=== PATIENT | female | born 1975 | race Caucasian/White ===

== ENCOUNTER 2022-10-31 15:56 | Emergency (ER) | payer OTHER, SELFPAY ==
[2022-10-31 16:00] VITALS: BP 174/110; PULSE 97; RESP 16; TEMP 36.8; O2SAT 99; BMI 27.8
--- NOTE | 2022-10-31 16:16 | ED.GENADUL1 ---
Documented by User: BRITTANY Kirby 10/31/22 17:08 HPI - General Adult General Chief complaint: Recheck/Abnormal Lab/Rx Stated complaint: HYPERTENSION Time Seen by Provider: 10/31/22 16:01 Source: patient and family Mode of arrival: walk-in Limitations: no limitations History of Present Illness HPI narrative: Patient is a 47-year-old female who presents to the emergency department for the evaluation of elevated blood pressure noted at her neurologist office. She states she had a routine follow-up today with her significant other at the neurologist office and was noted to have elevated blood pressure she was referred to the emergency department. She takes losartan daily but takes it at nighttime and has not had it yet today. She denies headache, visual changes, peripheral paresthesias, chest pain, shortness of breath. She did not know that her blood pressure was elevated. She has no focal medical complaints at this time. Related Data Home Medications Medication Instructions Recorded Confirmed aripiprazole 2 mg tablet 2 mg PO DAILY 10/31/22 10/31/22 buspirone 10 mg tablet 10 mg PO DAILY 10/31/22 10/31/22 diclofenac sodium 3 % topical gel 1 applic topical DAILY 10/31/22 10/31/22 duloxetine 60 mg capsule,delayed 60 mg PO DAILY 10/31/22 10/31/22 release hydroxychloroquine 200 mg tablet 200 mg PO BID 10/31/22 10/31/22 hydroxyzine pamoate 50 mg capsule 50 mg PO DAILY 10/31/22 10/31/22 leflunomide 10 mg tablet 10 mg PO DAILY 10/31/22 10/31/22 leflunomide 20 mg tablet 20 mg PO DAILY 10/31/22 10/31/22 losartan 50 mg tablet 50 mg PO DAILY 10/31/22 10/31/22 nabumetone 750 mg tablet 750 mg PO DAILY 10/31/22 10/31/22 omeprazole 20 mg capsule,delayed 20 mg PO DAILY 10/31/22 10/31/22 release Allergies Allergy/AdvReac Type Severity Reaction Status Date / Time No Known Drug Allergies Allergy Verified 10/31/22 16:00 Review of Systems ROS Constitutional Denies: fever or chills Eyes Denies: change in vision Cardiovascular Denies: chest pain Respiratory Denies: shortness of breath Gastrointestinal Denies: vomiting Neurological Denies: headache PFSH PFSH Social History Smoking status: Former smoker Previous occupational history: Unemployed, lives at home with significant other Tobacco Smoking status: Former smoker Occupational History Previous occupational history: Unemployed, lives at home with significant other Exam Narrative Exam Narrative: Gen.: Awake, alert, in no distress Head: Normocephalic, atraumatic ENT: Moist mucous membranes Respiratory: No respiratory distress, lungs clear bilaterally Cardio: Regular rate and rhythm Gastrointestinal: Abdomen is soft, nondistended and nontender to palpation Extremities: Moves extremities equally, no injuries noted Psych: Normal mood and affect Neuro: No focal neuro deficit Skin: Warm, dry, intact Constitutional Vital Signs - 24 hr 10/31/22 16:00 10/31/22 16:28 10/31/22 17:05 Temperature 98.2 F Pulse Rate [Monitor] 97 H Respiratory Rate 16 Blood Pressure 162/107 H 162/97 H Blood Pressure [Right Arm] 174/110 H Pulse Oximetry 99 Course Vital Signs Vital signs: Vital Signs Temperature 98.2 F 10/31/22 16:00 Pulse Rate 97 H 10/31/22 16:00 Respiratory Rate 16 10/31/22 16:00 Blood Pressure 174/110 H 10/31/22 16:00 Pulse Oximetry 99 10/31/22 16:00 Temperature 98.2 F 10/31/22 16:00 Pulse Rate 97 H 10/31/22 16:00 Respiratory Rate 16 10/31/22 16:00 Blood Pressure 162/97 H 10/31/22 17:05 Pulse Oximetry 99 10/31/22 16:00 Medical Decision Making [facility] Narrative Medical decision making narrative: Patient with no focal medical complaints in the emergency department. She is treated with 5 mg of IV Lopressor and 1.25 mg of IV Vasotec. Blood pressure on recheck is 162/97. Patient is instructed to follow-up with her PCP for evaluation of medication adjustment with her losartan. Return to the Emergency Room if symptoms change or worsen. Medical Records Medical records reviewed: Yes I reviewed the patient's medical records Discharge Plan Discharge Chief Complaint: Recheck/Abnormal Lab/Rx Clinical Impression: Hypertension Patient Disposition: Home, Self-Care Time of Disposition Decision: 17:07 Condition: Good Prescriptions / Home Meds: No Action diclofenac sodium 3 % gel 1 applic TOPICAL DAILY hydroxyzine pamoate 50 mg capsule 50 mg PO DAILY leflunomide 10 mg tablet 10 mg PO DAILY buspirone 10 mg tablet 10 mg PO DAILY hydroxychloroquine 200 mg tablet 200 mg PO BID duloxetine 60 mg capsule,delayed release(DR/EC) 60 mg PO DAILY losartan 50 mg tablet 50 mg PO DAILY nabumetone 750 mg tablet 750 mg PO DAILY leflunomide 20 mg tablet 20 mg PO DAILY omeprazole 20 mg capsule,delayed release(DR/EC) 20 mg PO DAILY aripiprazole 2 mg tablet 2 mg PO DAILY Instructions: Hypertension (ED) Stand Alone Forms: Portal Instructions Referrals: RADHA GOULD MD [Primary Care Provider] - 1 week Documented by User: Krunal Velasquez 10/31/22 17:22 HPI - General Adult General Chief complaint: Recheck/Abnormal Lab/Rx Stated complaint: HYPERTENSION Time Seen by Provider: 10/31/22 16:01 Related Data Home Medications Medication Instructions Recorded Confirmed aripiprazole 2 mg tablet 2 mg PO DAILY 10/31/22 10/31/22 buspirone 10 mg tablet 10 mg PO DAILY 10/31/22 10/31/22 diclofenac sodium 3 % topical gel 1 applic topical DAILY 10/31/22 10/31/22 duloxetine 60 mg capsule,delayed 60 mg PO DAILY 10/31/22 10/31/22 release hydroxychloroquine 200 mg tablet 200 mg PO BID 10/31/22 10/31/22 hydroxyzine pamoate 50 mg capsule 50 mg PO DAILY 10/31/22 10/31/22 leflunomide 10 mg tablet 10 mg PO DAILY 10/31/22 10/31/22 leflunomide 20 mg tablet 20 mg PO DAILY 10/31/22 10/31/22 losartan 50 mg tablet 50 mg PO DAILY 10/31/22 10/31/22 nabumetone 750 mg tablet 750 mg PO DAILY 10/31/22 10/31/22 omeprazole 20 mg capsule,delayed 20 mg PO DAILY 10/31/22 10/31/22 release Allergies Allergy/AdvReac Type Severity Reaction Status Date / Time No Known Drug Allergies Allergy Verified 10/31/22 16:00 [facility] Social History Smoking status: Former smoker Previous occupational history: Unemployed, lives at home with significant other Exam Constitutional Vital Signs - 24 hr 10/31/22 16:00 10/31/22 16:28 10/31/22 17:05 Temperature 98.2 F Pulse Rate [Monitor] 97 H Respiratory Rate 16 Blood Pressure 162/107 H 162/97 H Blood Pressure [Right Arm] 174/110 H Pulse Oximetry 99 Course Vital Signs Vital signs: Vital Signs Temperature 98.2 F 10/31/22 16:00 Pulse Rate 97 H 10/31/22 16:00 Respiratory Rate 16 10/31/22 16:00 Blood Pressure 174/110 H 10/31/22 16:00 Pulse Oximetry 99 10/31/22 16:00 Temperature 98.2 F 10/31/22 16:00 Pulse Rate 97 H 10/31/22 16:00 Respiratory Rate 16 10/31/22 16:00 Blood Pressure 162/97 H 10/31/22 17:05 Pulse Oximetry 99 10/31/22 16:00 Medical Decision Making MDM Narrative Medical decision making narrative: Patient with no focal medical complaints in the emergency department. She is treated with 5 mg of IV Lopressor and 1.25 mg of IV Vasotec. Blood pressure on recheck is 162/97. Patient is instructed to follow-up with her PCP for evaluation of medication adjustment with her losartan. Return to the Emergency Room if symptoms change or worsen. For this patient encounter I reviewed the mid-level provider?s documentation, medical decision-making and treatment plan, and I personally spent time with this patient. Shared APC visit, physician attestation: [id number]: This visit was performed by both a physician and an APC. I personally evaluated and examined the patient. I performed all aspects of MDM as documented. Discharge Plan Discharge Chief Complaint: Recheck/Abnormal Lab/Rx Clinical Impression: Hypertension Patient Disposition: Home, Self-Care Time of Disposition Decision: 17:07 Condition: Good Prescriptions / Home Meds: No Action diclofenac sodium 3 % gel 1 applic TOPICAL DAILY hydroxyzine pamoate 50 mg capsule 50 mg PO DAILY leflunomide 10 mg tablet 10 mg PO DAILY buspirone 10 mg tablet 10 mg PO DAILY hydroxychloroquine 200 mg tablet 200 mg PO BID duloxetine 60 mg capsule,delayed release(DR/EC) 60 mg PO DAILY losartan 50 mg tablet 50 mg PO DAILY nabumetone 750 mg tablet 750 mg PO DAILY leflunomide 20 mg tablet 20 mg PO DAILY omeprazole 20 mg capsule,delayed release(DR/EC) 20 mg PO DAILY aripiprazole 2 mg tablet 2 mg PO DAILY Instructions: Hypertension (ED) Stand Alone Forms: Portal Instructions Referrals: RADHA GOULD MD [Primary Care Provider] - 1 week
[2022-10-31 16:28] VITALS: BP 162/107
[2022-10-31] MEDS: ENALAPRILAT DIHYDRATE 1.25 MG/ML VIAL IV (16:28)
[2022-10-31] MEDS: METOPROLOL TARTRATE 5 MG/5 ML VIAL IVP (16:28)
--- NOTE | 2022-10-31 16:43 | PC.NURSE ---
Pt reports having chronic kidney problems and takes nom home BP med at 10pm every night. Pt reports BP has been elevated since 2pm today. This nurse asked if pt takes her BP daily in the afternoon and what are these readings. Pt unable to answer this question b/c pt does not take BP at home daily so pt is unsure what her BP is during each day. Pt denies any LESTER or dizziness and states. Pt remains asymptomatic with HTN at this time. Will continue to monitor.
[2022-10-31 17:05] VITALS: BP 162/97
--- NOTE | 2022-10-31 17:24 | PC.NURSE ---
d/c instructions complete, pt verbalized understanding. no new meds and pt states will call PCP tomorrow for a follow up. gait steady to exit and told to return for any problems or concerns
== END 2022-10-31 17:25 | disposition home or self-care (01) ==
PROVIDERS: Emergency Provider Emergency Medicine; PCP Nurse Practitioner Primary Care
DX: I10 Essential (primary) hypertension (principal); Z79.899 Other long term (current) drug therapy; Z87.891 Personal history of nicotine dependence
CPT/HCPCS: 96374; 96375; 99284